=== PATIENT | male | born 1995 | race Asian ===

== ENCOUNTER 2018-10-26 13:45 | Inpatient (IN) | payer OTHER ==
[~2018-10-26] VITALS: Ht 170.2 cm; Wt 106.1 kg
[2018-10-26 14:44] LABS: BASOPHILS % (AUTO) 0.3 % (0.0-2.0); EOSINOPHILS % (AUTO) 0 % (1.0-6.0); HEMOGLOBIN 15.6 g/dL (13.5-17.5); LYMPHOCYTES # (AUTO) 0.9 K/uL (1.0-4.8); LYMPHOCYTES % (AUTO) 3.6 % (22.0-44.0); MEAN CORPUSCULAR HEMOGLOBIN 21.5 pg (26.0-34.0); MEAN CORPUSCULAR HGB CONC 31.9 G/dL (31.0-37.0); MEAN CORPUSCULAR VOLUME 68 fL (80-100); MONOCYTES # (AUTO) 2.1 K/uL (0.1-1.0); MONOCYTES % (AUTO) 8.5 % (2.0-9.0); NEUTROPHILS # (AUTO) 21.3 K/uL (1.8-7.7); PLATELET COUNT (AUTO) 364 K/uL (150-450); RED BLOOD CELL COUNT(AUTO) 7.26 MIL/uL (4.50-5.90); RED CELL DISTRIBUTION WIDTH 14.9 % (11.5-14.5)
[2018-10-26 14:46] LABS: NEUTROPHILS % (AUTO) 87.6 % (40.0-70.0)
[2018-10-26 14:49] LABS: ANION GAP 7 mmol/L (8-16); CALCIUM, TOTAL 9.8 mg/dL (8.8-10.5); CARBON DIOXIDE 32 mmol/L (22-29); CHLORIDE 98 mmol/L (98-107); CREATININE 0.84 mg/dL (0.60-1.30); GLOMERULAR FILTR. RATE CALC > 60 mL/min (>60); GLUCOSE,RANDOM 143 mg/dL (70-110); POTASSIUM 4.6 mmol/L (3.5-5.1); SODIUM SERUM 137 mmol/L (136-145); UREA NITROGEN, BLOOD 7 mg/dL (7-18)
[2018-10-26 14:54] LABS: ALANINE AMINOTRANSFERASE 42 U/L (12-78); ALKALINE PHOSPHATASE 72 U/L (46-116); ASPARTATE AMINOTRANSFERASE 17 U/L (15-37); BILIRUBIN,TOTAL 0.9 mg/dL (0.1-1.0); LIPASE 85 U/L (73-393); TOTAL PROTEIN, SERUM 8.4 g/dL (6.4-8.2)
[2018-10-26 15:14] LABS: APPEARANCE,URINE CLEAR (CLEAR); BILIRUBIN,URINE NEGATIVE (NEGATIVE); GLUCOSE, URINE (UA) NEGATIVE (NEGATIVE); KETONES,URINE NEGATIVE (NEGATIVE); LEUKOCYTE ESTERASE ,URINE NEGATIVE (NEGATIVE); NITRATE,URINE NEGATIVE (NEGATIVE); OCCULT BLOOD,URINE NEGATIVE (NEGATIVE); PROTEIN,URINE NEGATIVE (NEGATIVE); UROBILINOGEN,URINE 0.2 mg/dL (<=1.0)
[2018-10-26] MEDS ORDERED: ONDANSETRON HCL 4 MG/2 ML VIAL IVP ONE (15:15)
[2018-10-26] MEDS ORDERED: HYDROmorphone 2 MG/ML SYRINGE IVP ONE (15:15)
[2018-10-26] MEDS ORDERED: IOVERSOL 350 MG/ML 100 ML VIAL ONE (15:21)
[2018-10-26] MEDS ORDERED: SODIUM CHLORIDE 0.9% 100 ML ONE (15:21)
[2018-10-26] MEDS ORDERED: ONDANSETRON HCL 4 MG/2 ML VIAL IVP PRN ×2 (17:15→21:00)
[2018-10-26] MEDS ORDERED: PIPERACILLIN/TAZO 3.375 GM/D5W 50 ML IV ONE (17:15)
[2018-10-26] MEDS ORDERED: MORPHINE SULFATE 4 MG/ML SYRINGE IVP PRN ×2 (17:15→21:00)
[2018-10-26] MEDS ORDERED: SODIUM CHLORIDE 0.9% 1,000 ML IV ONE (17:15)
[2018-10-26] MEDS ORDERED: 0.9% SODIUM CHLORIDE 10 ML SYRINGE IVP PRN (17:15)
[2018-10-26] MEDS ORDERED: ACETAMINOPHEN 325 MG TABLET PO PRN ×2 (17:15→21:00)
[2018-10-26 18:09] LABS: PROTHROMBIN TIME 10.3 SEC (9.4-11.6)
[2018-10-26 18:29] VITALS: BP 136/73
[2018-10-26 18:32] VITALS: BP 136/73
[2018-10-26 19:50] VITALS: BP 132/83
[2018-10-26] MEDS ORDERED: MAGNESIUM HYDROXIDE SUSPENSION 30 ML UDCUP PO PRN (21:00)
[2018-10-26] MEDS: DOCUSATE SODIUM 100 MG CAPSULE PO SCH ×2 (21:00→21:43)
[2018-10-26] MEDS: SODIUM CHLORIDE 0.9% 1,000 ML IV SCH (21:43)
[2018-10-26 23:41] VITALS: BP 129/71
[2018-10-26] MEDS: PIPERACILLIN/TAZO 3.375 GM/D5W 50 ML IV SCH (23:54)
[2018-10-27 05:21] VITALS: BP 129/75
[2018-10-27] MEDS: PIPERACILLIN/TAZO 3.375 GM/D5W 50 ML IV SCH ×4 (05:50→23:31)
[2018-10-27 06:09] LABS: BASOPHILS % (AUTO) 0.1 % (0.0-2.0); EOSINOPHILS % (AUTO) 0.4 % (1.0-6.0); HEMATOCRIT 43.9 % (41-53); HEMOGLOBIN 14.4 g/dL (13.5-17.5); LYMPHOCYTES # (AUTO) 2.9 K/uL (1.0-4.8); LYMPHOCYTES % (AUTO) 14.6 % (22.0-44.0); MEAN CORPUSCULAR HGB CONC 32.8 G/dL (31.0-37.0); MEAN CORPUSCULAR VOLUME 67 fL (80-100); MONOCYTES # (AUTO) 2.5 K/uL (0.1-1.0); MONOCYTES % (AUTO) 12.7 % (2.0-9.0); NEUTROPHILS # (AUTO) 14.2 K/uL (1.8-7.7); NEUTROPHILS % (AUTO) 72.2 % (40.0-70.0); PLATELET COUNT (AUTO) 328 K/uL (150-450); RED BLOOD CELL COUNT(AUTO) 6.55 MIL/uL (4.50-5.90); RED CELL DISTRIBUTION WIDTH 14.8 % (11.5-14.5)
[2018-10-27 06:30] LABS: ALANINE AMINOTRANSFERASE 32 U/L (12-78); ALBUMIN 3.2 g/dL (3.4-5.0); ALKALINE PHOSPHATASE 59 U/L (46-116); ANION GAP 8 mmol/L (8-16); ASPARTATE AMINOTRANSFERASE 10 U/L (15-37); BILIRUBIN,TOTAL 1.7 mg/dL (0.1-1.0); CALCIUM, TOTAL 8.8 mg/dL (8.8-10.5); CARBON DIOXIDE 31 mmol/L (22-29); CHLORIDE 101 mmol/L (98-107); CREATININE 0.91 mg/dL (0.60-1.30); GLOMERULAR FILTR. RATE CALC > 60 mL/min (>60); GLUCOSE,RANDOM 113 mg/dL (70-110); POTASSIUM 3.8 mmol/L (3.5-5.1); SODIUM SERUM 140 mmol/L (136-145); UREA NITROGEN, BLOOD 7 mg/dL (7-18)
[2018-10-27] MEDS ORDERED: LIDOCAINE 2%/EPI 1:200,000/PF 20 ML VIAL ONE (06:55)
[2018-10-27] MEDS ORDERED: BUPIVACAINE HCL/PF 0.5% 30 ML VIAL ONE (06:55)
[2018-10-27] MEDS ORDERED: SODIUM CHLORIDE 0.9% 0 ML IV ONE (06:55)
[2018-10-27] MEDS ORDERED: RINGERS SOLUTION,LACTATED 1,000 ML IV ONE (07:15)
[2018-10-27] MEDS ORDERED: OXYGEN THERAPY IH SCH (08:00)
[2018-10-27] MEDS ORDERED: HYDROmorphone 2 MG/ML SYRINGE IVP PRN (08:00)
[2018-10-27] MEDS ORDERED: FentaNYL CITRATE-PF 100 MCG/2 ML VIAL IVP PRN (08:00)
[2018-10-27] MEDS ORDERED: MEPERIDINE-PF 25 MG/ML VIAL IVP PRN (08:00)
[2018-10-27] MEDS ORDERED: ACETAMINOPHEN 500 MG TABLET PO PRN (08:15)
[2018-10-27] MEDS: DOCUSATE SODIUM 100 MG CAPSULE PO SCH ×2 (09:00→20:25)
[2018-10-27 09:31] VITALS: BP 126/72
[2018-10-27] MEDS: PANTOPRAZOLE SODIUM 40 MG/VIAL IVP SCH (10:51)
[2018-10-27 11:45] VITALS: BP 118/76
[2018-10-27] MEDS: IBUPROFEN 800 MG TABLET PO PRN ×2 (12:47→21:30)
[2018-10-27 15:05] VITALS: BP 131/78
[2018-10-27 19:59] VITALS: BP 124/73
[2018-10-27 22:51] LABS: BASOPHILS % (AUTO) 0.3 % (0.0-2.0); EOSINOPHILS % (AUTO) 0.4 % (1.0-6.0); HEMATOCRIT 42.1 % (41-53); HEMOGLOBIN 13.5 g/dL (13.5-17.5); LYMPHOCYTES # (AUTO) 3.2 K/uL (1.0-4.8); LYMPHOCYTES % (AUTO) 20.2 % (22.0-44.0); MEAN CORPUSCULAR HEMOGLOBIN 21.6 pg (26.0-34.0); MEAN CORPUSCULAR HGB CONC 32.1 G/dL (31.0-37.0); MEAN CORPUSCULAR VOLUME 67 fL (80-100); MONOCYTES # (AUTO) 2.3 K/uL (0.1-1.0); MONOCYTES % (AUTO) 14.5 % (2.0-9.0); NEUTROPHILS # (AUTO) 10.2 K/uL (1.8-7.7); NEUTROPHILS % (AUTO) 64.6 % (40.0-70.0); PLATELET COUNT (AUTO) 296 K/uL (150-450); RED BLOOD CELL COUNT(AUTO) 6.25 MIL/uL (4.50-5.90); RED CELL DISTRIBUTION WIDTH 14.4 % (11.5-14.5)
[2018-10-27 23:01] LABS: ANION GAP 7 mmol/L (8-16); CALCIUM, TOTAL 8.3 mg/dL (8.8-10.5); CARBON DIOXIDE 31 mmol/L (22-29); CHLORIDE 104 mmol/L (98-107); CREATININE 0.89 mg/dL (0.60-1.30); GLOMERULAR FILTR. RATE CALC > 60 mL/min (>60); GLUCOSE,RANDOM 113 mg/dL (70-110); POTASSIUM 3.5 mmol/L (3.5-5.1); SODIUM SERUM 142 mmol/L (136-145); UREA NITROGEN, BLOOD 9 mg/dL (7-18)
[2018-10-27 23:07] LABS: ALANINE AMINOTRANSFERASE 26 U/L (12-78); ALBUMIN 2.9 g/dL (3.4-5.0); ALKALINE PHOSPHATASE 50 U/L (46-116); ASPARTATE AMINOTRANSFERASE 13 U/L (15-37); TOTAL PROTEIN, SERUM 6.6 g/dL (6.4-8.2)
[2018-10-27 23:38] VITALS: BP 117/62
[2018-10-28] MEDS: SODIUM CHLORIDE 0.9% 1,000 ML IV SCH (03:25)
[2018-10-28] MEDS: PIPERACILLIN/TAZO 3.375 GM/D5W 50 ML IV SCH ×2 (05:10→13:02)
[2018-10-28 05:15] VITALS: BP 114/69
[2018-10-28] MEDS ORDERED: LIDOCAINE/PF 2% 5 ML VIAL IM ONE (05:36)
[2018-10-28] MEDS ORDERED: FentaNYL CITRATE-PF 100 MCG/2 ML VIAL IVP ONE (05:36)
[2018-10-28] MEDS ORDERED: NEOSTIGMINE METHYLSULFATE 1 MG/ML 10 ML VIAL IVP ONE (05:36)
[2018-10-28] MEDS ORDERED: SUCCINYLCHOLINE CHLORIDE 20 MG/ML 10 ML VIAL IVP ONE (05:36)
[2018-10-28] MEDS ORDERED: ONDANSETRON HCL 4 MG/2 ML VIAL IVP ONE (05:36)
[2018-10-28] MEDS ORDERED: PROPOFOL 1% 20 ML VIAL IVP ONE (05:36)
[2018-10-28] MEDS ORDERED: KETOROLAC TROMETHAMINE 60 MG/2 ML VIAL IM ONE (05:36)
[2018-10-28] MEDS ORDERED: GLYCOPYRROLATE 0.2 MG/ML VIAL IM ONE (05:36)
[2018-10-28] MEDS ORDERED: MIDAZOLAM HCL 2 MG/2 ML VIAL IVP ONE (05:36)
[2018-10-28] MEDS ORDERED: ROCURONIUM BROMIDE 10 MG/ML 5 ML VIAL IVP ONE (05:36)
[2018-10-28 08:18] VITALS: BP 126/76
[2018-10-28] MEDS: DOCUSATE SODIUM 100 MG CAPSULE PO SCH (08:25)
[2018-10-28] MEDS: PANTOPRAZOLE SODIUM 40 MG/VIAL IVP SCH (08:25)
[2018-10-28 11:15] VITALS: BP 132/84
[2018-10-28] MEDS ORDERED: ACET-784 PO (12:52)
== END 2018-10-28 13:30 | disposition home or self-care (01) | DRG 234 ==
LOC: EMS 13:46 → 4E 17:23
PROVIDERS: ADMIT Internal Medicine; ATTEND Internal Medicine
PROC: 0DTJ4ZZ Resection of Appendix, Percutaneous Endoscopic Approach (ICD-10-PCS; principal; 2018-10-27 07:00)
DX: K35.80 Unspecified acute appendicitis (principal); R65.10 Systemic inflammatory response syndrome (SIRS) of non-infectious origin without acute organ dysfunction; E66.9 Obesity, unspecified; Z68.36 Body mass index [BMI] 36.0-36.9, adult
CPT/HCPCS: 74177; 87081; 88304; 96361; 96374; 96375; C9113; J0330; J1170; J1885; J2250; J2270; J2405; J2543; J2704; J3010; J3490; J7030; J7050